=== PATIENT | female | born 2000 | race Caucasian/White ===

== ENCOUNTER 2024-11-01 10:52 | Outpatient (REF) | payer BC, SELFPAY ==
[2024-11-01 14:24] LABS: Hematocrit 41.4 % (37.0-47.0); Hemoglobin 14.1 g/dl (12.0-16.0); Mean Corpuscular HGB Conc 34.1 g/dl (31.0-35.0); Mean Corpuscular Hemoglobin 30.2 pg (27.0-33.0); Mean Corpuscular Volume 88.7 fL (80.0-98.0); NRBC Abs Auto 0.000 X10*3/uL (0.0-0.012); NRBC Pct Auto 0.0 /100WBC (0.0-0.2); Platelet Count 354 X10*3/uL (160-400); Red Blood Count 4.67 X10*6/uL (4.20-5.50); White Blood Count 9.9 X10*3/uL (4.8-10.8)
[2024-11-01 14:32] LABS: Hemoglobin A1C 121.5184 umol/L; Total Hemoglobin (HGBA1C) 3725.3980 umol/L
[2024-11-01 14:48] LABS: Alanine Aminotransferase 25 U/L (0-31); Albumin Level 4.2 g/dL (3.5-5.0); Alkaline Phosphatase 55 U/L (39-117); Anion Gap 11 (12-20); Aspartate Amino Transferase 20 U/L (5-31); Blood Urea Nitrogen 14 mg/dL (9-16); Calcium 9.1 mg/dL (8.4-10.2); Carbon Dioxide 26 mmol/L (22-29); Chloride 106 mmol/L (96-108); Cholesterol 217 mg/dL (<200); Estimated Glomerular Filt Rate > 60; HDL Cholesterol 59 mg/dL (>40); Potassium 4.2 mmol/L (3.3-5.1); Sodium 139 mmol/L (135-145); Total Protein 7.0 g/dL (6.5-8.0); Triglycerides 85 mg/dL (<150)
[2024-11-01 15:06] LABS: Folate 9.7 ng/mL (> or = 4.0); Vitamin B12 733 pg/mL (200-900)
[2024-11-03 16:39] LABS: Immunoglobulin A 167 mg/dL (47-310)
== END 2024-11-01 10:53 | disposition home or self-care (01) ==
LOC: HO.WFDLDS 10:52
PROVIDERS: PCP Nurse Practitioner Family; Visit Provider Nurse Practitioner Family
DX: J45.20 Mild intermittent asthma, uncomplicated (principal); K21.9 Gastro-esophageal reflux disease without esophagitis; F41.1 Generalized anxiety disorder; F33.1 Major depressive disorder, recurrent, moderate; G43.109 Migraine with aura, not intractable, without status migrainosus; R14.0 Abdominal distension (gaseous); R10.9 Unspecified abdominal pain; H53.8 Other visual disturbances; J30.2 Other seasonal allergic rhinitis; L74.513 Primary focal hyperhidrosis, soles; E66.01 Morbid (severe) obesity due to excess calories; Z76.89 Persons encountering health services in other specified circumstances; Z68.42 Body mass index [BMI] 45.0-49.9, adult
CPT/HCPCS: 36415; 80053; 80061; 82306; 82570; 82607; 82746; 82784; 83036; 84443; 85027; 86364; 96127; 96160

== ENCOUNTER 2024-11-01 10:52 | Outpatient (AMB) | payer BC, SELFPAY ==
--- NOTE | 2024-11-01 10:54 | MHC.PC.OV ---
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 Intake Note: New patient to establish care and cpe Bulldozer Press Operator Required: No Allergies No Known Allergies Allergy (Verified 11/01/24 11:19) Medication List - Last Reconciled 11/01/24 by Jenny Davila, MORTGAGE MANAGER- albuterol sulfate 90 mcg/actuation inhalation cetirizine 10 mg PO DAILY lorazepam 0.5 mg PO DAILY PRN pantoprazole 20 mg PO DAILY Tobacco use date assessed: 11/01/24 Dental Screening Dental Screen Date: 11/01/24 Did you have a dental visit in the last 12 months?: Yes Did you have a dental problem in the last 6 months where you did not have access to dental care?: No Was dental information given to patient?: Patient has dentist HPI HPI Comments History of Present Illness Details 24 y/o F with asthma, obesity, seasonal allergies, GERD, migraine with aura Health Maintenance Tdap 2013 [facility] Optho Counselor Med prescriber Samson History of Present Illness - The patient is a 24-year-old female presenting to [facility] care Previous PCP: kacie Kerr before ([facility]) No records available. c/o migraine w/ aura. - Migraines since age 13 with aura, previously 2-3 episodes weekly, less frequent now. - Imitrex ineffective, no ongoing migraine treatment, open to preventatives. - Chronic bloating & abd pain, generalized, no diarrhea, noted year-round for years, exacerbated during menses. - asthma has never been tested formerly; worse when sick. Using EMPERATRIZ + seaonsal allergies, uses zyrtec - GERD controlled on PPI. - Foot odor, notably after work, described as ?vinegar-like.? wonders if she has fungus; excessive sweating - Patient reports past issue with pink eye and corneal scars. Seeing Dr Sandoval, needs backdated referral. - BMI 46.5 Review of Systems - General: Denies unexpected weight changes. - Cardiovascular: Denies palpitations or chest pain. - Respiratory: Reports asthma managed with albuterol. - Gastrointestinal: Reports chronic abdominal bloating; denies diarrhea. - Genitourinary: Recent Nexplanon removal; two menstrual cycles since. - Neurological: Reports migraines with aura. - Psychiatric: Reports anxiety and depression with ongoing management. - Dermatological: Reports foot odor and potential fungal infection. Physical Exam General: Well developed, well nourished, in no acute distress. Appears stated age. Head: Normocephalic, atraumatic. Eyes: Pupils are equal, round and reactive to light and accommodation. Conjunctivae are clear. Lungs: Clear to auscultation bilaterally. No rales, rhonchi or wheeze noted. Good air flow in all kc. Heart: Regular rate and rhythm. No murmurs, click, rubs or gallops are noted. Abdomen: Bowel sounds present in all quadrants. The abdomen is soft with no masses or organomegaly noted. Tender generally speaking w/o rebound or gaurding, No hernias are noted. Musculoskeletal: Joints are nontender, without swelling, redness, or effusions. Pulses: Peripheral pulses are equal and palpable bilaterally. Extremities: No clubbing, cyanosis nor edema is noted. Mild fungal toe nails. Psych: Mood and affect appropriate. Patient is in counseling and has a medication prescriber for anxiety and depression. Results Pending Discussion Notes I discussed with the patient her concerns regarding migraines and the current lack of effective treatment. Told her about the option for preventative vitamins such as magnesium and riboflavin to reduce migraines' frequency and severity. Further, I addressed the need to consider an abortive medication alternative since Imitrex was ineffective. Discussed the benefits and potential side effects of magnesium. For chronic abdominal bloating, I recommended labs and a stool sample to rule out bacterial causes and potential celiac disease, emphasizing the importance of continuing to consume gluten for accuracy. Assured the patient that results and requirements would be sent to her through our patient portal. Suggested a pulmonary function test to evaluate her asthma control and approval for using her inhaler as necessary in the meantime. Queried about her foot odor; explained it could have a fungal cause. Proposed prescribing Qbryza wipes if covered by insurance and suggesting moisture-wicking socks if not. Finally, explained the benefit of follow-up to review lab results, migraine management evaluation, and prescription adjustments. Patient was given time to ask questions. All questions were answered to their satisfaction. Assessment and Plan 1. Migraine with Aura - Magnesium 400 mg PM, riboflavin PM; monitor response. - Excedrin migraine for abortive sparingly - consider neuro referral prn only 2. Asthma - Albuterol PRN, order PFT for further evaluation. 3. Abdominal Discomfort and Bloating - Celiac panel, stool bacteria test; follow-up with lab results. 4. Foot Odor and Possible Fungal Infection - Trial Qbryza wipes pending insurance, suggest non-cotton socks. - otc antifungals 5. Obesity - Encourage discussion of weight loss strategies in future visits. RTO in 8 week to review labs, fu on PFT, migraine mgmt. Sooner as needed. Patient Instructions - Take magnesium supplement at night, be aware of potential side effects. - Begin taking riboflavin as advised. - Complete blood and stool tests as instructed. - Use albuterol inhaler as needed until pulmonary test performed. - Wear moisture-wicking socks for foot odor and await potential pharmacy call regarding Qubrisa. - Check our patient portal for lab results and further instructions. Consent Patient was informed and verbally consented to the use of an ambient scribe for clinic note documentation during this visit. Total time spent caring for the patient today was 40 minutes. This includes time spent before the visit reviewing the chart, time spent during the visit, and time spent after the visit on documentation, reviewing laboratory results, diagnostic imaging, medications, performing a medically necessary evaluation, counseling on diagnoses, care coordination, ordering appropriate tests, ordering appropriate medications, review of tests performed by other providers, reporting test results with the patient, communication with other healthcare providers. [facility] Medical History (Updated 11/01/24 @ 11:45 by Jenny Davila, [facility]) Anxiety and depression Asthma Bipolar 1 disorder GERD (gastroesophageal reflux disease) Headache Migraines OCD (obsessive compulsive disorder) Surgical History (Updated 11/01/24 @ 11:07 by Courtney Kennedy MA) No pertinent past surgical history Family History (Updated 11/01/24 @ 11:12 by Courtney Kennedy MA) Mother Asthma HTN (hypertension) Clotting disorder Mental health disorder Substance abuse Maternal Grandmother Asthma HTN (hypertension) Colon cancer Paternal Grandmother Asthma HTN (hypertension) Diabetes Clotting disorder Breast cancer Paternal Grandfather HTN (hypertension) Father High cholesterol Social History (Updated 11/01/24 @ 11:08 by Courtney Kennedy MA) Household Members: Family Household Members Other:: father Both parents involved: No Caregiver staying overnight: No Housing: House Are you a primary career orientation teacher to a significant other at home: No Do you presently have visiting nurse or other home services: No 75 years or older and lives alone: No Alcohol intake: current Alcohol intake frequency: a few times a month Patient Tobacco Use Status: Never used Tobacco e-Cigarette/Vaping Use: Never Used Second Hand Smoke Exposure: No Substance Use Type: Marijuana service: No Current occupational status: employed Current occupation: [employer] Cognitive needs: No Hearing needs: No Vision needs: Yes (wear glasses) Questionnaire PHQ-9 Over the last 2 weeks, how often have you been bothered by any of the following problems? 1. Little interest or pleasure in doing things: more than half the days 2. Feeling down, depressed, or hopeless: more than half the days 3. Trouble falling or staying asleep, or sleeping too much: nearly every day 4. Feeling tired or having little energy: nearly every day 5. Poor appetite or overeating: nearly every day 6. Feeling bad about yourself - or that you are a failure or have let yourself or your family down: nearly every day 7. Trouble concentrating on things, such as reading the newspaper or watching television: nearly every day 8. Moving or speaking so slowly that other people could have noticed. Or the opposite - being so fidgety or restless that you have been moving around a lot more than usual: several days 9. Thoughts that you would be better off or of hurting yourself in some way: not at all Total score: 20 Depression Screening Interpretation: Positive Depression Screening Follow-up: Existing condition and Community Mental Health Worker F/U Depression Screening Done: Yes 23172 - PHQ-9 Billing: Yes Source: Developed by Drs. Destin Ambrosio, Traci Clarke, Fernando Virk and colleagues, with an educational hilda from [employer] Thrive Questionnaire Date Thrive assessed: 11/01/24 I am a: Patient What is your living situation today?: I have a steady place to live Within the past 12 months, did the food you bought not last and you didn't have the money to get more?: Never true Within the past 12 months, did you worry whether your food would run out before you got money to buy more?: Never true Do you have trouble paying for medicines?: I choose not to answer this question Do you have trouble getting transportation to medical appointments?: No Do you have trouble paying your heating and electricity bill?: I choose not to answer this question Do you have trouble taking care of your child, family member or friend?: No Do you have trouble with day-to-day activities such as bathing, preparing meals, shopping, managing finances, etc.?: I choose not to answer this question Are you currently unemployed and looking for a job?: No Are you interested in more education?: I choose not to answer this question Please select the resources that you would like help with: None Currently or been in a relationship where the following occur: No concerns reported THRIVE Score: 0 AUDIT C Alcohol Use Questionnaire (AUDIT-C) 1. How often do you have a drink containing alcohol?: Monthly or less 2. How many drinks containing alcohol do you have on a typical day when you are drinking?: 1 or 2 3. How often do you have six or more drinks on one occasion?: Never Total Score: 1 Score Reviewed/Action Taken: Yes NIURKA-7 AMB Questionnaire NIURKA-7 Date NIURKA - 7 assessed: 11/01/24 Feeling nervous, anxious, or on edge: 3 = Nearly every day Not being able to stop or control worryin = Nearly every day Worrying too much about different things: 3 = Nearly every day Trouble relaxin = Nearly every day Being so restless that it is hard to sit still: 2 = More than half the days Becoming easily annoyed or irritable: 2 = More than half the days Feeling afraid as if something awful might happen: 3 = Nearly every day Total NIURKA-7 score (0-4 normal; 5-9 mild; 10-14 moderate; 15-21 severe): 19 Source: Developed by Drs. Destin Ambrosio, Traci Clarke, Fernando Virk and colleagues, with an educational hilda from [employer] NIURKA-7 Assessment Billing NIURKA-7 Assessment Tool: NIURKA-7 Assessment 09855 ACT Questionnaire In the past 4 weeks, how much of the time did your asthma keep you from getting as much done at work, school or at home?: None of the time During the past 4 weeks, how often have you had shortness of breath?: Not at all During the past 4 weeks, how often did your asthma symptoms wake you up at night or earlier than usual in the morning?: Not at all During the past 4 weeks, how often have you had to use your rescue inhaler or nebulizer medication?: Not at all How would you rate your asthma control during the past 4 weeks?: Completely controlled ACT Interpretation: Negative Score: 25 Physical exam (Primary Care) Vital Signs: Last Vital Signs Temp 97.1 F 11/01/24 11:01 Pulse 72 11/01/24 11:01 Resp 12 11/01/24 11:01 BP 102/70 11/01/24 11:01 Pulse Ox 98 11/01/24 11:01 Oxygen Delivery Method Room Air 11/01/24 11:01 BMI result Body Mass Index 46.5 BMI Assessment/Plan discussion: High BMI High, discussed plan: lifestyle Tobacco/Smoking Status: Tobacco use Status Tobacco use date assessed 11/01/24 11/01/24 10:59 Patient Tobacco Use Status Never used Tobacco 11/01/24 11:08 e-Cigarette/Vaping Use Never Used 11/01/24 11:08 PHQ-9: PHQ-9 Score PHQ-9: Total score 20 11/01/24 11:09 Depression Screening Interpretation: Positive Depression Screening Follow-up: Existing condition and Community Mental Health Worker F/U Thrive Assessment: Date of Thrive Assessment Date Thrive assessed 11/01/24 11/01/24 10:59 Currently or been in a relationship where the following occur: No concerns reported Coding Level of Care Code New Pt Level 4 (13341) Complex EM visit Add On G2211 Diagnoses Encounter to establish care with new provider Z76.89 Obesity, morbid, BMI 40.0-49.9 E66.01 Chronic GERD K21.9 Mild intermittent asthma in adult without complication J45.20 NIURKA (generalized anxiety disorder) F41.1 Moderate episode of recurrent major depressive disorder F33.1 Major depression episode severity: moderate Migraine with aura and without status migrainosus, not intractable G43.109 Status migrainosus presence: without status migrainosus Intractability: not intractable Abdominal bloating with cramps R14.0; R10.9 Blurred vision, bilateral H53.8 Seasonal allergies J30.2 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 Additional Codes NIURKA-7 Assessment Billing - NIURKA-7 Assessment Tool: NIURKA-7 Assessment 35631 ([id number]) PHQ-9 - 54365 - PHQ-9 Billing: Yes ([id number]) Asthma Control Questionnaire - ACT Interpretation: Negative ([id number]) Assessment & Plan Assessment & Plan (1) Encounter to establish care with new provider: Code(s): Z76.89 - Persons encountering health services in other specified circumstances (2) Obesity, morbid, BMI 40.0-49.9: Code(s): E66.01 - Morbid (severe) obesity due to excess calories Category: Medical (3) Chronic GERD: Code(s): K21.9 - Gastro-esophageal reflux disease without esophagitis Category: Medical (4) Mild intermittent asthma in adult without complication: Code(s): J45.20 - Mild intermittent asthma, uncomplicated Category: Medical (5) NIURKA (generalized anxiety disorder): Code(s): F41.1 - Generalized anxiety disorder Category: Medical (6) MDD (major depressive disorder), recurrent episode: Code(s): F33.9 - Major depressive disorder, recurrent, unspecified Category: Medical Qualifiers: Major depression episode severity: moderate Qualified Code(s): F33.1 - Major depressive disorder, recurrent, moderate (7) Migraine with aura: Comment: tried and family imitrex in the past Code(s): G43.109 - Migraine with aura, not intractable, without status migrainosus Category: Medical Qualifiers: Status migrainosus presence: without status migrainosus Intractability: not intractable Qualified Code(s): G43.109 - Migraine with aura, not intractable, without status migrainosus (8) Abdominal bloating with cramps: Code(s): R14.0 - Abdominal distension (gaseous); R10.9 - Unspecified abdominal pain Category: Medical (9) Blurred vision, bilateral: Code(s): H53.8 - Other visual disturbances Category: Medical (10) Seasonal allergies: Code(s): J30.2 - Other seasonal allergic rhinitis Category: Medical (11) Hyperhidrosis of feet: Code(s): L74.513 - Primary focal hyperhidrosis, soles Category: Medical Plan . Orders: Orders H pylori Ag Stool Today R10.9 - Unspecified abdominal pain, R14.0 - Abdominal distension (gaseous) Comprehensive Met. Panel Today Z00.00 - Encounter for general adult medical examination without abnormal findings Complete Blood Count no Diff Today Z00.00 - Encounter for general adult medical examination without abnormal findings Vitamin B12 and Folate Today Z00.00 - Encounter for general adult medical examination without abnormal findings Celiac Disease Panel Today R10.9 - Unspecified abdominal pain, R14.0 - Abdominal distension (gaseous) PFT pulmonary function test Today J45.20 - Mild intermittent asthma, uncomplicated Hemoglobin A1c Today Z00.00 - Encounter for general adult medical examination without abnormal findings Lipid Panel Today Z00.00 - Encounter for general adult medical examination without abnormal findings Microalbumin, Random (w Creat) Today Z00.00 - Encounter for general adult medical examination without abnormal findings TSH reflex Free T4 Today Z00.00 - Encounter for general adult medical examination without abnormal findings Vitamin D 25-OH Total Today Z00.00 - Encounter for general adult medical examination without abnormal findings Referrals Ophthalmology Referral H53.8 - Other visual disturbances Medications: New magnesium oxide 400 mg PO BEDTIME 90 caps 2RF riboflavin (vitamin B2) 400 mg PO BEDTIME 90 tabs 2RF pantoprazole 20 mg PO DAILY 90 tabs 2RF albuterol sulfate 90 mcg/actuation 2 puffs inhalation Q6H 6.7 grams 1RF cetirizine 10 mg PO DAILY 90 tabs 2RF glycopyrronium tosylate 2.4% (Qbrexza) 1 appl topical Q24H 30 ea 12RF rnqagqg-ubirmnjgkfpgv-nlbebart 250-250-65 mg (Excedrin Migraine) 1 tab PO DAILY PRN 30 tabs 2RF MIGRAINE HEADACHE Patient Instructions: Walk-In Care (Urgent Care): We Make it Easy Walk-in for urgent medical issues such as: ? Seasonal Allergies ? Insect Bites ? Cough ? Diarrhea ? Acute Asthma Attacks ? Back, Knee or Joint Pain ? Ear Infection ? Fever without a Rash ? Headaches ? Nausea ? [place] [facility], Rash or Skin Irritation ? Sore Throat ? Sports Physicals ? Vomiting Most insurances are accepted. Patients do not need to be part of the [facility] to seek care at the walk-in clinic. Locations [address] [place] [address] ? [phone] [facility] Walk-In Care in [place] provides services to ages 18 and over. Open Friday-Friday: 7 a.m. to 5 p.m. and Friday: 9 a.m. to 3 p.m.* *Hours may vary due to staffing availability. To confirm Walk-In Care hours in [place], please call [phone]. [address] [place] [address] ? [phone] [facility] Walk-In Care in [place] provides services to ages 12 and over. Open Friday-Friday: 8 a.m. to 5 p.m. Hours may vary due to staffing availability. To confirm Walk-In Care hours in [place], please call [phone]. LABORATORY SERVICES: [facility] Lab ? Primary Location [address] [place] [address] Friday through Friday 6:00 AM ? 5:00 PM Friday 7:00 AM ? 11:00 AM* [phone] The [facility] Lab is centrally located near the front entrance of the [facility] for easy outpatient access. Convenient parking is provided for outpatients. *Hours may vary due to staffing availability. To confirm Laboratory hours for any location, please call [phone]. Offsite Location For your convenience, we offer offsite laboratory draw stations at the following locations: [address] [place] [address] ? [address], [address] Friday through Friday 7:30 AM ? 1:00 PM* [phone] *Hours may vary due to staffing availability. To confirm Laboratory hours for any location, please call [phone]. [place] ? [address] Friday through Friday 6:00 AM ? 3:30 PM* Friday 6:30 AM ? 3 PM* [phone] *Hours may vary due to staffing availability. To confirm Laboratory hours for any location, please call [phone] [place] [address] Friday through Friday 7:30 AM ? 4:00 PM* [phone] *Hours may vary due to staffing availability. To confirm Laboratory hours for any location, please call [phone] [place] [address] Friday through 9:00 AM ? 4:00 PM* *Hours may vary due to staffing availability. To confirm Laboratory hours for any location, please call [phone]. Appointments are not necessary. Walk-ins are welcome. Like all the departments throughout the [facility], our Lab undergoes frequent reviews to ensure the quality and accuracy of test results, and our staff takes special pride in its status as a nationally accredited facility. Patient Portal: [facility] ONE PATIENT. ONE RECORD. BETTER CARE. [facility] has a fully integrated, cutting-edge mobile electronic health information system that has revolutionized the way we care for our patients and manage our organization. This system improves communication and coordination enabling us to provide safe, higher-quality care, and an overall positive experience for staff and patients. Our first priority, as always, is to deliver the highest quality care possible. The system is running in the background supporting that priority. This portal is for all [facility] services and practices. If you are experiencing any technical difficulties with enrolling or logging into the Patient Portal please complete the [facility] Patient Portal Technical Support Form. [facility] now offers a new secure on-line interactive tool for patients to review their health information ? ?Patient Portal. This interactive web portal will enable patients and their families to take an active role in their care by providing easy, secure access to their health information via the internet. The Patient Portal provides patients with instant access to their health information, including laboratory results, medications, allergies, demographic information, visit history, and more. In addition to managing their own care, parents and health care proxies with authorized consent will appreciate the ability to access the records of those individuals for whom they provide care. Please note: if you wish to gain access (Proxy) to another patient?s portal, you will be required to come to the Medical Records Department in person at [facility]. Both the patient giving proxy access and the proxy will need to provide photo identification and complete the appropriate authorization. The Patient Portal also allows track their appointments online. The [facility] Patient Portal also saves patients time by allowing them to submit updates to their demographic and contact information prior to their visits. Portal email notifications will also alert patients to any new activity on their portal, such as test results and new appointments. In order to initially enroll in the [facility] Patient Portal, you will need to enter some required information including the following: your [facility] Medical Record number your personal home email address name date of Please note: In order to enroll in the [facility] Patient Portal, we need to have your email address on file in your electronic medical record. ?The email address needs to be specific for one person (yourself) in order for your Portal enrollment to be successful. ?You can update your email address in person with our Registration staff when you are registering for a hospital visit. ?Otherwise, you will need to come to the Health Information Management (Medical Records) Department at [facility]. ?We are open from Friday ? Friday from 7:30 a.m. ? 4:30 p.m. ?You will be required to present a photo id. Once you have successfully enrolled in the Patient Portal, you will receive a one-time user id and password for the Portal, sent to your email address. ?This will allow you to log into the Patient Portal within 99 hrs and reset your own logon id and password, and define personal security questions. ?Once your permanent login and password have been set, you can log into the [facility] Patient Portal at any time via the blue button above or from the Portal Logon button on any page of the [facility] website. [facility] and [facility] encourage all of our patients to enroll in Patient Portal as it presents a valuable opportunity for patients and their families to actively participate in their care and stay healthy Welcome to [facility]. ?We look forward to working with you.
[2024-11-01 11:01] VITALS: BP 102/70; PULSE 72; RESP 12; TEMP 36.2; O2SAT 98; BMI 46.5
--- OUTSIDE RECORDS SUMMARY | 2024-11-01 12:08 | XMS_ITS ---
Author Name [facility] Organization Unknown History of Medication Use Medication Directions Dispensed Refills Start Date End Date Stat us predniSONE (DELTASONE) 50 mg tablet Take 1 tablet (50 mg total) by mouth daily for 3 days. Take with food. 11/27/2023 12/01/2023 active busPIRone (BUSPAR) 7.5 mg tablet Take 1 tablet (7.5 mg total) by mouth 2 (two) times daily. 11/04/2023 active etonogestreL (NEXPLANON) 68 mg Impl 1 each (68 mg total) by Subdermal route once. active hydrOXYzine (VISTARIL) 50 mg capsule Take 1 capsule (50 mg total) by mouth 3 (three) times daily as needed for anxiety. active OXcarbazepine (TRILEPTAL) 300 mg tablet Take 1 tablet (300 mg total) by mouth 2 (two) times daily. 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 3 ProblemAct [facility] Flu-like symptoms active 2024-02-08 9 ProblemAct [facility] Family history of migraine headaches active 9 ProblemAct [facility] Suprapubic pain, acute active EncounterDiagnosi sAct CCT Flank pain active EncounterDiagnosisAct HHCCT Encounters Encounter Type Encounter Reason Primary Diagnosis Location Date Ambulatory Other general symptoms(780.99) Other general symptoms(780.99) [facility] 02/26/2024 Ambulatory Acute pharyngitis Acute pharyngitis [facility] 11/27/2023 Ambulatory Acute pharyngitis Acute pharyngitis [facility] 11/13/2023 Ambulatory Unspecified abdominal pain Unspecified abdominal pain [facility] 07/20/2023 Care Team Organization Name Specialty Phone Email Start Date End Da te [facility] 11/13/2023 [facility] NO PCP Primary Care 07/20/2023 [facility] 07/20/2023 05/26/2024 [facility] 07/20/2023
--- OUTSIDE RECORDS SUMMARY | 2024-11-01 12:08 | XMS_ITS | Clinical Summary ---
Author Organization [facility] Address [address] [place] [address] Care Team Providers Care Table Operator Name Role Phone Pcp, No Primary Care Provider Unavailabl e Allergies No known active allergies Medications OXcarbazepine (TRILEPTAL) 300 MG tablet Take 300 mg by mouth 2 (two) times a day. 4 Active hydrOXYzine pamoate (VISTARIL) 50 MG capsule TAKE ONE CAPSULE BY MOUTH TWICE A DAY NEEDED FOR ANXIETY 4 Active etonogestrel (Nexplanon) 68 MG implant 68 mg by Subdermal route once. Active Social History Tobacco Use Types Packs/Day Years Used Date Smoking Tobacco: Never Smokeless Tobacco: Never Comments Unknown Sex and Gender Information Value Date Recorded Sex Assigned at Not on file Legal Sex Female 2:13 PM EDT Gender Identity Not on file Sexual Orientation Not on file Last Filed Vital Signs Vital Sign Reading Time Taken Comments Blood Pressure 140/84 07/20/2023 4:20 PM EDT Pulse 82 07/20/2023 4:20 PM EDT Temperature 36.8 C (98.3 F) 07/20/2023 4:20 PM EDT Respiratory Rate 16 07/20/2023 4:20 PM EDT Oxygen Saturation 99% 07/20/2023 4:20 PM EDT Inhaled Oxygen Concentration - - Weight - - Height - - Body Mass Index - - Plan of Treatment Health Maintenance Due Date Last Done Comments Hepatitis C Virus Screening 2001 HIV Screening 2014 HPV Vaccines (1 - 3-dose series) 2016 DTaP/Tdap/Td Vaccines (1 - Tdap) 2020 Hepatitis B Vaccines (1 of 3 - 19+ 3-dose series) 2020 Pap Smear (Ages 21-65) 2022 COVID-19 Vaccine (3 2023-2 5 season) 2023 08/30/2020, 07/16/2020 Influenza Vaccine 10/08/2024 Pneumococcal Vaccine: Pediatric (0-5 Years) and At-Risk Patients (6 to 49 Years) Aged Out No longer eligible b ased on patient's age to complete this topic Insurance [employer] Care Teams Table Operator Relationship Specialty Start Date End Date Pcp, No PCP - General General Medicine 07/20/23
--- OUTSIDE RECORDS SUMMARY | 2024-11-01 12:08 | XMS_ITS | Clinical Summary ---
Author Organization [facility] [address] [facility] Address [address] [place] [address] Phone Care Team Providers Care Manager Practice Name Role Phone ChangJose Primary Care Provider [phone] Allergies No known active allergies Medications etonogestrel-eluti ng contraceptive device 68 mg implant subdermal implant Inject into the skin. Active QUEtiapine (SEROquel) 25 mg tablet Take 1 tablet (25 mg total) by mouth 2 (two) times a day. Active OXcarbazepine (TRILEPTAL) 300 mg tablet Take 1 tablet (300 mg total) by mouth 2 times daily. 4 Active Active Problems No known active problems Medical History Medical History Date Comments Migraines Family History Medical History Relation Name Comments Blindness Neg Hx Cataracts Neg Hx Glaucoma Neg Hx Macular degeneration Neg Hx Strabismus Neg Hx Relation Name Status Comments Father Alive Mother Alive Social History Tobacco Use Types Packs/Day Years Used Date Smoking Tobacco: Never Tobacco Cessation:Counseling Given: Not Answered Alcohol Use Standard Drinks/Week Comments Not Currently 0 (1 standard drink = 0.6 oz pur e alcohol) Comments Unknown Sex and Gender Information Value Date Recorded Sex Assigned at Not on file Legal Sex Female 3:10 AM EST Gender Identity Not on file Sexual Orientation Not on file 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 Not on file Not on file Obstetrics History Para Term AB IAB SAB Ectopic Multiple Livin g Live Births 0 0 0 0 0 0 0 0 0 0 0 Last Filed Vital Signs Vital Sign Reading Time Taken Comments Blood Pressure 129/83 02/20/2024 1:13 PM EST Pulse 87 02/20/2024 1:13 PM EST Temperature - - Respiratory Rate - - Oxygen Saturation - - Inhaled Oxygen Concentration - - Weight 101 kg (222 lb) 02/20/2024 1:13 PM EST Height 157.5 cm (5' 2 ) 02/18/2023 10:38 AM EST Body Mass Index 40.6 02/18/2023 10:38 AM EST Plan of Treatment Health Maintenance Due Date Last Done Comments HPV Vaccines (1 - 3-dose series) 2016 Meningococcal B Vaccine (1 o f 2 - Standard) 2017 DTaP,Tdap,and Td Vaccines (1 - Tdap) 2020 Hepatitis B Vaccines (1 of 3 - 19+ 3-dose series) 2020 HIV Screening 04/09/2023 Hepatitis C Screening 04/09/2023 Social Influencers of Health Screening 04/09/2023 COVID-19 Vaccine (1 - 2023-2 5 season) 2023 Depression Screening 03/10/2024 Influenza Vaccine (#1) 2024 Gonorrhea/Chlamydia Screening 02/19/2025, 02/18/2023 Cervical Cancer Screening: P ap Smear 02/18/2026 02/18/2023, 02/18/2023 HIB Vaccines Aged Out No longer eligi ble based on patient's age to complete this topic Hepatitis A Vaccines Aged Out No long er eligible based on patient's age to complete this topic IPV Vaccines Aged Out No longer eligi ble based on patient's age to complete this topic MMR Vaccines Aged Out No longer eligi ble based on patient's age to complete this topic Meningococcal ACWY Vaccine Aged Out N o longer eligible based on patient's age to complete this topic Pneumococcal Vaccine: Pediatrics (0 to 5 Years) and At-Risk Patients (6 to 49 Years) Aged Out No longer eligible b ased on patient's age to complete this topic RSV Immunization Patients Under 20 months Aged Out No longer eligible b ased on patient's age to complete this topic Varicella Vaccines Aged Out No longer eligible based on patient's age to complete this topic Procedures Procedure Name Priority Date/Time Associated Diagnosis Comments PULMONARY FUNCTION TESTING 08/17/2024 CHLAMYDIA TRACHOMATIS AND NEISSERIA GONORRHOEAE PCR Routine 02/20/2024 1:38 PM EST Screen for STD (sexually transmitted disease) HPV Routine 02/18/2023 from Last 3 Months or Most Recently Relevant to Health Maintenance Results * Pulmonary function testing: (08/17/2024) Provider Mehdi Onbase PFT ORDERABLES Final Re sult * Chlamydia trachomatis and Neisseria gonorrhoeae molecular study (02/20/2024 1:38 PM EST) Pathologist [facility] Neisseria gonorrhoeae PCR Negative Negative LAB MOLECULAR DIAGNOSTICS METHOD 02/21/2024 9:02 AM EST [facility] Chlamydia trachomatis PCR Negative Negative LAB MOLECULAR DIAGNOSTICS METHOD 02/21/2024 9:02 AM EST [facility] Swab Cervix uteri structure / Unknown Non-blood Collection / Unknown 02/20/2024 1:38 PM EST 02/20/2024 1:38 PM EST Johnson Albrecht CNM LAB MICROBIOLOGY - GENERAL ORD ERABLES Final Result [facility] [address] [place] [address], * Cervical Cancer Screening: HPV (02/18/2023) Pathologist [facility] Cervical Cancer Screening: HPV no interpretation , abstracted Historical Provider HEALTH MAINTENANCE Final Result from Last 3 Months or Most Recently Relevant to Health Maintenance Insurance MEDICAID - [place] [facility] Care Teams Manager Practice Relationship Specialty Start Date End Date Jose Downing DO [address] [place] [id number] PCP - General 03/20/23
--- OUTSIDE RECORDS SUMMARY | 2024-11-01 12:08 | XMS_ITS | Clinical Summary ---
Author Organization [address] Address [address] [place] [id number] Care Team Providers Care Form Builder Helper Name Role Phone No, Pcp (Do Not Change Name) Primary Care Provid er Unavailable Allergies No known active allergies Medications OXcarbazepine (TRILEPTAL) 300 mg tablet Take 1 tablet (300 mg total) by mouth 2 (two) times daily. Active hydrOXYzine (VISTARIL) 50 mg capsule Take 1 capsule (50 mg total) by mouth 3 (three) times daily as needed for anxiety. Active etonogestreL (NEXPLANON) 68 mg Impl 1 each (68 mg total) by Subdermal route once. Active busPIRone (BUSPAR) 7.5 mg tablet Take 1 tablet (7.5 mg total) by mouth 2 (two) times daily. 4 Active Active Problems Problem Noted Date Diagnosed Date Flu-like symptoms 02/26/2024 Nausea and vomiting, unspecified vomiting type 1 04/28/2023 Family history of migraine headaches 09/15/2018 Mixed hypercholesterolemia and hypertriglyceride alma rosa 06/15/2018 Migraine with aura 07/28/2017 Anxiety disorder of childhood or adolescence Acne vulgaris 03/15/2016 Family History Medical History Relation Name Comments Breast cancer Maternal Grandmother x's 2 Diabetes Type 2 Maternal Grandmother Relation Name Status Comments Father Alive Maternal Grandmother Alive Mother Alive Social History Tobacco Use Types Packs/Day Years Used Date Smoking Tobacco: Never Smokeless Tobacco: Never Tobacco Cessation:Counseling Given: Not Answered Alcohol Use Standard Drinks/Week Comments Not Currently 0 (1 standard drink = 0.6 oz pur e alcohol) seldom Comments No Sex and Gender Information Value Date Recorded Sex Assigned at Not on file Legal Sex Female 9:35 AM EDT Gender Identity Not on file Sexual Orientation Not on file Last Filed Vital Signs Vital Sign Reading Time Taken Comments Blood Pressure 132/83 02/26/2024 4:00 PM EST Pulse 82 02/26/2024 4:00 PM EST Temperature 36.7 C (98 F) 02/26/2024 4:00 PM EST Respiratory Rate 18 02/26/2024 4:00 PM EST Oxygen Saturation 99% 02/26/2024 4:00 PM EST Inhaled Oxygen Concentration - - Weight 99.8 kg (220 lb) 02/26/2024 4:00 PM EST Height 157.5 cm (5' 2 ) 02/26/2024 4:00 PM EST Body Mass Index 40.24 02/26/2024 4:00 PM EST Plan of Treatment Health Maintenance Due Date Last Done Comments MMR Vaccines (1 of 1 - Stand wu series) 2002 DTaP/TDaP Vaccines (1 - Tdap) 2008 HIV screening 2014 Varicella Vaccines (1 of 2 - 13+ 2-dose series) 2014 HPV vaccine series (1 - 3-do se series) 2016 Hepatitis C screening 08/08/2019 Hepatitis B vaccine series ( 1 of 3 - 19+ 3-dose series) 2020 Tetanus adult (Td q 10,TDAP once) 2021 Cervical cancer screening 2022 Covid-19 vaccine series ( season) 2023 Influenza vaccine 11/08/2024 Chlamydia screening 02/19/2025 02/20/2024 RSV Immunization (1 - 1-dose 75+ series) 2076 HIB Vaccines Aged Out No longer eligi ble based on patient's age to complete this topic Hepatitis A Vaccines Aged Out No long er eligible based on patient's age to complete this topic IPV Vaccines Aged Out No longer eligi ble based on patient's age to complete this topic Meningococcal Vaccine Aged Out No amador lynda eligible based on patient's age to complete this topic Pneumococcal Vaccine (2 - 49 years) Aged Out No longer eligible b ased on patient's age to complete this topic Rotavirus Vaccines Aged Out No longer eligible based on patient's age to complete this topic Insurance [employer] Care Teams Form Builder Helper Relationship Specialty Start Date End Date No, Pcp (Do Not Change Name) PCP - General 11/13/23
== END 2024-11-01 11:38 | disposition home or self-care (01) ==
LOC: HO.HMCFM 10:53
PROVIDERS: PCP Nurse Practitioner Family; Visit Provider Nurse Practitioner Family
DX: K21.9 Gastro-esophageal reflux disease without esophagitis (principal); E66.01 Morbid (severe) obesity due to excess calories; F33.1 Major depressive disorder, recurrent, moderate; Z68.42 Body mass index [BMI] 45.0-49.9, adult; Z76.89 Persons encountering health services in other specified circumstances; J45.20 Mild intermittent asthma, uncomplicated; F41.1 Generalized anxiety disorder; G43.109 Migraine with aura, not intractable, without status migrainosus; R14.0 Abdominal distension (gaseous); R10.9 Unspecified abdominal pain; H53.8 Other visual disturbances; J30.2 Other seasonal allergic rhinitis

== ENCOUNTER 2024-11-16 09:48 | Outpatient (AMB) | payer BC, SELFPAY ==
--- NOTE | 2024-11-16 10:02 | MHC.PC.OV ---
Vital Signs 11/16/24 10:06 Height 5 ft 2 in Weight 252 lb BMI 46.1 BP 118/72 Blood Pressure Location Lt brachial Position Sitting Respiration 12 Pulse 86 Pulse Source Pulse Oximeter Temp 97.5 F Temp Source Oral Pulse Oximetry (%) 96 Oxygen Delivery Method Room Air Intake Visit Reasons: allergies Intake Note: Patient c/o pressure on face, headaches, jaw and side of the neck px x 2 weeks. Claims Service Representative Required: No Allergies No Known Allergies Allergy (Verified 11/16/24 10:11) Medication List - Last Reconciled 11/16/24 by Jenny Davila, PARTY PLAN SALES DIRECTOR- albuterol sulfate 90 mcg/actuation 2 puffs inhalation Q6H [id number] 250-250-65 mg (Excedrin Migraine) 1 tab PO DAILY PRN cetirizine 10 mg PO DAILY lorazepam 0.5 mg PO DAILY PRN magnesium oxide 400 mg PO BEDTIME pantoprazole 20 mg PO DAILY riboflavin (vitamin B2) 400 mg PO BEDTIME Tobacco use date assessed: 11/16/24 Dental Screening Dental Screen Date: 11/16/24 Did you have a dental visit in the last 12 months?: Yes Did you have a dental problem in the last 6 months where you did not have access to dental care?: No Was dental information given to patient?: Patient has dentist HPI HPI Comments History of Present Illness Details 24 y/o F with asthma, obesity, seasonal allergies, GERD, migraine with aura History of Present Illness - The patient is a 24-year-old female presenting with allergy symptoms in the setting of asthma. - Symptoms started about 2 weeks ago, worse over the last few days - Sneezing, intermittent sore throat, and right ear ringing reported, tight congested cough w/ mucous - Uses cetirizine 10-20mg with mild relief, same w/ Albuterol. - No fever noted. - Seasonal exacerbation noted Review of Systems - Respiratory: Reports shortness of breath and coughing tightness. - ENT: Reports sneezing, sore throat, right-sided ear ringing. - General: Denies fever. - Nasal: Denies nasal running, reports congestion. Physical Exam General: Well developed, well nourished, in no acute distress. Appears stated age. Head: Normocephalic, atraumatic. Eyes: Pupils are equal, round and reactive to light and accommodation. Conjunctivae are clear Ears: TM intact bilat; clear on the L, trace fluid on the R Nares: yellow drainage scant bilat , turbinates pale and edematous, mild frontal and maxillary sinus tenderness w palp Pharynx: clear Lungs: Mild cough, no distress, slightly dim airflow throughout Heart: Regular rate and rhythm. No murmurs, click, rubs or gallops are noted. Pulses: Peripheral pulses are equal and palpable bilaterally. Extremities: No clubbing, cyanosis nor edema is noted. Psych: Mood and affect appropriate Discussion Notes I discussed with the patient that her symptoms suggest an exacerbation of allergic rhinitis and asthma. We reviewed the use of a new combination inhaler, CombiVent, for maintenance and as-needed relief, providing multifaceted control. She agreed to trying Montelukast at bedtime, beneficial for continued airway relief. I provided guidance on the frequency of CombiVent use?up to four times daily during symptomatic periods, then as required. I explained potential side effects, ongoing management, and emphasized contacting me if symptoms worsen. Refill processes were discussed, focusing on ensuring accessibility to treatment year-long. Patient was given time to ask questions. All questions were answered to their satisfaction. Assessment and Plan 1. Allergic Rhinitis - Continue cetirizine 10-20mg QD, - Add Montelukast at bedtime. 2. Asthma - Start CombiVent inhaler, up to four times daily. Cont albuterol - Monitor symptom improvement. 3. Fluid in the Ear, R - Expect improvement with Montelukast. Patient Instructions - Use the CombiVent inhaler up to four times a day when symptoms are bad. - Continue cetirizine for allergy symptoms; - Take Montelukast every night at bedtime. - Contact if symptoms do not improve or worsen. - RTO as scheduled or sooner as needed. Consent Patient was informed and verbally consented to the use of an ambient scribe for clinic note documentation during this visit. [facility] Medical History (Updated 11/01/24 @ 11:45 by GERMANIA Ceballos) Anxiety and depression Asthma Bipolar 1 disorder GERD (gastroesophageal reflux disease) Headache Migraines OCD (obsessive compulsive disorder) Surgical History (Updated 11/01/24 @ 11:07 by Courtney Kennedy MA) No pertinent past surgical history Family History (Updated 11/01/24 @ 11:12 by Courtney Kennedy MA) Mother Asthma HTN (hypertension) Clotting disorder Mental health disorder Substance abuse Maternal Grandmother Asthma HTN (hypertension) Colon cancer Paternal Grandmother Asthma HTN (hypertension) Diabetes Clotting disorder Breast cancer Paternal Grandfather HTN (hypertension) Father High cholesterol Social History (Updated 11/01/24 @ 11:08 by Courtney Kennedy MA) Household Members: Family Household Members Other:: father Both parents involved: No Caregiver staying overnight: No Housing: House Are you a primary cardiac care unit nurse to a significant other at home: No Do you presently have visiting nurse or other home services: No 75 years or older and lives alone: No Alcohol intake: current Alcohol intake frequency: a few times a month Patient Tobacco Use Status: Never used Tobacco e-Cigarette/Vaping Use: Never Used Second Hand Smoke Exposure: No Substance Use Type: Marijuana service: No Current occupational status: employed Current occupation: wildlife technician Cognitive needs: No Hearing needs: No Vision needs: Yes (wear glasses) Questionnaire PHQ-9 Over the last 2 weeks, how often have you been bothered by any of the following problems? 1. Little interest or pleasure in doing things: not at all 2. Feeling down, depressed, or hopeless: not at all 3. Trouble falling or staying asleep, or sleeping too much: not at all 4. Feeling tired or having little energy: not at all 5. Poor appetite or overeating: not at all 6. Feeling bad about yourself - or that you are a failure or have let yourself or your family down: not at all 7. Trouble concentrating on things, such as reading the newspaper or watching television: not at all 8. Moving or speaking so slowly that other people could have noticed. Or the opposite - being so fidgety or restless that you have been moving around a lot more than usual: not at all 9. Thoughts that you would be better off or of hurting yourself in some way: not at all Total score: 0 Depression Screening Interpretation: Negative Depression Screening Done: Yes 27032 - PHQ-9 Billing: Yes Source: Developed by Drs. Destin Ambrosio, Traci Clarke, Fernando Virk and colleagues, with an educational hilda from [employer] Thrive Questionnaire Date Thrive assessed: 11/16/24 I am a: Patient What is your living situation today?: I have a steady place to live Within the past 12 months, did the food you bought not last and you didn't have the money to get more?: Never true Within the past 12 months, did you worry whether your food would run out before you got money to buy more?: Never true Do you have trouble paying for medicines?: I choose not to answer this question Do you have trouble getting transportation to medical appointments?: No Do you have trouble paying your heating and electricity bill?: I choose not to answer this question Do you have trouble taking care of your child, family member or friend?: No Do you have trouble with day-to-day activities such as bathing, preparing meals, shopping, managing finances, etc.?: I choose not to answer this question Are you currently unemployed and looking for a job?: No Are you interested in more education?: I choose not to answer this question Please select the resources that you would like help with: None Currently or been in a relationship where the following occur: No concerns reported THRIVE Score: 0 NIURKA-7 AMB Questionnaire NIURKA-7 Date NIURKA - 7 assessed: 11/16/24 Feeling nervous, anxious, or on edge: 0 = Not at all Not being able to stop or control worryin = Not at all Worrying too much about different things: 0 = Not at all Trouble relaxin = Not at all Being so restless that it is hard to sit still: 0 = Not at all Becoming easily annoyed or irritable: 0 = Not at all Feeling afraid as if something awful might happen: 0 = Not at all Total NIURKA-7 score (0-4 normal; 5-9 mild; 10-14 moderate; 15-21 severe): 0 Source: Developed by Drs. Destin Ambrosio, Traci Clarke, Fernando Virk and colleagues, with an educational hilda from [employer]. NIURKA-7 Assessment Billing NIURKA-7 Assessment Tool: NIURKA-7 Assessment 03542 Physical exam (Primary Care) Vital Signs: Last Vital Signs Temp 97.5 F 11/16/24 10:06 Pulse 86 11/16/24 10:06 Resp 12 11/16/24 10:06 BP 118/72 11/16/24 10:06 Pulse Ox 96 11/16/24 10:06 Oxygen Delivery Method Room Air 11/16/24 10:06 BMI result Body Mass Index 46.1 Tobacco/Smoking Status: Tobacco use Status Tobacco use date assessed 11/16/24 11/16/24 10:08 Patient Tobacco Use Status Never used Tobacco 11/16/24 10:08 e-Cigarette/Vaping Use Never Used 11/16/24 10:08 PHQ-9: PHQ-9 Score PHQ-9: Total score 0 11/16/24 10:08 Depression Screening Interpretation: Negative Thrive Assessment: Date of Thrive Assessment Date Thrive assessed 11/16/24 11/16/24 10:08 Currently or been in a relationship where the following occur: No concerns reported Coding Level of Care Code Est Pt Level 3 (64611) Complex EM visit Add On G2211 Diagnoses Seasonal allergies J30.2 Mild intermittent asthma in adult without complication J45.20 Additional Codes NIURKA-7 Assessment Billing - NIURKA-7 Assessment Tool: NIURKA-7 Assessment 93056 ([id number]) PHQ-9 - 59599 - PHQ-9 Billing: Yes ([id number]) Assessment & Plan Assessment & Plan (1) Seasonal allergies: Code(s): J30.2 - Other seasonal allergic rhinitis Category: Medical (2) Mild intermittent asthma in adult without complication: Code(s): J45.20 - Mild intermittent asthma, uncomplicated Category: Medical Plan . Medications: New montelukast 10 mg PO BEDTIME 90 tabs 2RF ipratropium-albuterol 20-100 mcg/actuation (Combivent Respimat) space evenly during waking hours 1 puff inhalation QID 4 grams 3RF
[2024-11-16 10:06] VITALS: BP 118/72; PULSE 86; RESP 12; TEMP 36.4; O2SAT 96; BMI 46.1
--- OUTSIDE RECORDS SUMMARY | 2024-11-16 11:32 | XMS_ITS | Clinical Summary ---
Author Organization [facility] Address [address] [place] [address] Care Team Providers Care Net Developer Consultant Name Role Phone Pcp, No Primary Care [...] topic Insurance [employer] Care Teams Net Developer Consultant Relationship Specialty Start Date End Date Pcp, No PCP - General General Medicine 07/20/23
--- OUTSIDE RECORDS SUMMARY | 2024-11-16 11:32 | XMS_ITS | Clinical Summary ---
Author Organization [address] Address [address] [place] [phone] Care Team Providers Care Info Print Press Operator Name Role Phone No, Pcp (Do Not [...] series (1 - 3-do se series) 2016 Meningococcal B Vaccine (1 o f 2 - Standard) 2017 Hepatitis C screening 08/08/2019 Hepatitis B vaccine series ( 1 of 3 - 19+ 3-dose series) 2020 Tetanus adult (Td q 10,TDAP once) 2021 Cervical cancer screening 2022 Covid-19 vaccine series ( season) 2024 Influenza vaccine 11/08/2024 Chlamydia screening 02/19/2025 02/20/2024 [...] age to complete this topic Insurance [employer] Care Teams Info Print Press Operator Relationship Specialty Start Date End Date No, Pcp (Do Not Change Name) PCP - General 11/13/23
== END 2024-11-16 10:20 | disposition home or self-care (01) ==
LOC: HO.HMCFM 09:49
PROVIDERS: PCP Nurse Practitioner Family; Visit Provider Nurse Practitioner Family
DX: J30.2 Other seasonal allergic rhinitis (principal); J45.20 Mild intermittent asthma, uncomplicated

== ENCOUNTER → 2024-11-16 09:48 | Outpatient (BNVA) | payer BC, SELFPAY | PROVIDERS: PCP Nurse Practitioner Family; Visit Provider Nurse Practitioner Family | DX: J45.20 Mild intermittent asthma, uncomplicated (principal); J30.2 Other seasonal allergic rhinitis | CPT/HCPCS: 96127 ==

== ENCOUNTER 2024-12-27 12:59 | Outpatient (AMB) | payer BC, SELFPAY ==
--- NOTE | 2024-12-27 13:02 | A.OFFPC_ITS ---
Vital Signs 12/27/24 13:07 Height 5 ft 2 in Weight 256 lb 4 oz BMI 46.9 BP 124/72 Blood Pressure Location Lt brachial Position Sitting Respiration 12 Pulse 75 Pulse Source Pulse Oximeter Temp 97.6 F Temp Source Oral Pulse Oximetry (%) 99 Oxygen Delivery Method Room Air Intake Visit Reasons: 8 WEEKS FU ON LABS/PFT/MIGRAINES Intake Note: Follow up on migraines. Patient pft was schedule for February. Pumper Helper Required: No Allergies No Known Allergies Allergy (Verified 12/27/24 13:23) Medication List - Last Reconciled 12/27/24 by Jenny Davila, CERTIFICATION ENGINEER- albuterol sulfate 90 mcg/actuation 2 puffs inhalation Q6H kcgvgam-wsdybbpcuqjdh-rwodimmy 250-250-65 mg (Excedrin Migraine) 1 tab PO DAILY PRN cetirizine 10 mg PO DAILY ipratropium-albuterol 20-100 mcg/actuation (Combivent Respimat) 1 puff inhalation QID lithium carbonate ER mg PO lorazepam 0.5 mg PO DAILY PRN magnesium oxide 400 mg PO BEDTIME magnesium oxide 400 mg PO BEDTIME montelukast 10 mg PO BEDTIME pantoprazole 20 mg PO DAILY riboflavin (vitamin B2) 400 mg PO BEDTIME Tobacco use date assessed: 12/27/24 Dental Screening Dental Screen Date: 12/27/24 Did you have a dental visit in the last 12 months?: Yes Did you have a dental problem in the last 6 months where you did not have access to dental care?: No Was dental information given to patient?: Patient has dentist HPI HPI Comments History of Present Illness Details 24 y/o F with asthma, obesity, seasonal allergies, GERD, migraine with aura, HLD, hx of Vit D def, Fhx breast ca (MGM), hx of NIURKA Fhx; Breat CA in PGM, HTN in MGM, MGF, Mom, PGF Health Maintenance Tdap 12/27/24 Pap Flu 12/27/24 Specialists Optho Counselor Med prescriber Andrei Garza History of Present Illness The patient is a 24-year-old female presenting with follow-up for migraine headaches and asthma. Chronic Migraine: - Chronic migraines; riboflavin, magnesi um started. - Excedrin used as needed; concern with lithium co-use. - Daily general headaches; no major migr aines since starting preventatives Asthma/PND/Rhinitis - Persistent wheezing; inhalers not full y effective. - Phlegm, despite CombiVent. - Upcoming pulmonary function test 02/26 25 - Recent use of Montelukast and Zyrtec. Singulair has helped. Also using flonase. Feels a lot of PND. Sometimes combivent makes her cough more Hypercholesterolemia: - Consistent high cholesterol; matching past records. - Discussed at a recent lab review. 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 - Interest in genetic testing. - She thinks she may have this given chr onic GI complaints, joint complaints and also wonders about Mast Cell Disorder. Has pelvic pain, urine incont. Bipolar: - Managed with lithium; psychotherapy in volved. - Due for labs. Review of Systems - Respiratory: Reports wheezing, phlegm. - Neurological: Reports headaches. - Musculoskeletal: Reports tendinitis. - Psychiatric: Reports anxiety, medicati on concerns. Physical Exam Physical Exam General: Well developed, well nourished, in no acute distress. Appears stated age. Head: Normocephalic, atraumatic. Eyes: Pupils are equal, round and reactive to light and accommodation. Conjunctivae are clear Ears: TM intact bilat; Nares: clear , turbinates pale Pharynx: + PND Lungs: CTAB Heart: Regular rate and rhythm. No murmurs, click, rubs or gallops are noted. Pulses: Peripheral pulses are equal and palpable bilaterally. Extremities: No clubbing, cyanosis nor edema is noted. Psych: Mood and affect appropriate Results - Lab results from 11/01/24: Normal CBC, electrolytes, liver function; elevated cholesterol. - Stool sample: Outstanding for GI evalu ation. Advised to get done SATURNINO (H pylori) - Genetic testing and ultrasound: Butch schwab for evaluation of potential Billy-Roshan los Syndrome and pelvic issues Discussion Notes I discussed with the patient the management of her chronic migraine headaches, emphasizing the current effectiveness of riboflavin and magnesium, and addressed her concern regarding Excedrin and lithium interactions. We reviewed her asthma medications, noting persistent symptoms and planning for a new inhaler prescription for improved control. There was a detailed discussion about potential genetic testing for Billy-Danlos Syndrome and mast cell disorder, planning for appropriate diagnostics. I explained the benefits and limitations of such testing and acknowledged insurance-related uncertainties regarding coverage. The patient was advised to continue with scheduled tests and follow-up plans, including the pulmonary function test, ultrasound, and blood work requested by her psychiatrist. Patient was given time to ask questions. All questions were answered to their satisfaction. Assessment and Plan 1. Chronic Migraine - Riboflavin and magnesium continued. - Careful Excedrin use with lithium. 2. Asthma/PND/Rhinitis - Prescribe Arnuity; continue Montelukas t, Zyrtec & flonase ; can use Combivent PRN - Pulmonary function test February. - Check labs for Mast cell - Tdap and Flu admin today 3. Hypercholesterolemia - Monitor levels; maintain current measu res. 4. Billy-Danlos Syndrome - pt wonders a bout this and wants genetic testing (eVendor Check) - Genetic testing ordered Order confirmed Your order ID?[id number] [email or web address] . 5. bipolar - Ongoing lithium; follow psychiatrist. 6. Abd bloating/Urine Incont: Check Pelv ic/TV US Patient Instructions - Take your new inhaler Arnuity once faby ly. - Continue taking Montelukast and Zyrtec as directed. - Use Excedrin only when headaches are s evere, not daily. - Contact us for any cost concerns with your medications. - Expect a call to schedule your pulmona ry function test in February and your ultrasound. - Submit stool sample when ready. - Return for blood tests required by you r psychiatrist. - Call us for any unusual symptoms or co ncerns. - RTO Mar to on PFT and lab testing, sooner PRN Consent The patient consented to genetic testing for potential Billy-Danlos syndrome and related mast cell inquiry after I explained the testing process. The test involves a cheek swab sent to a lab for evaluation, and it may not be fully covered by insurance. I informed her of the estimated costs and steps should the palmer be prohibitive. We discussed the necessity of multiple diagnostics, including ultrasound for pelvic concerns. The patient agreed to the proposed plans and understood the risks, benefits, and alternatives. Consent was obtained in-office with the patient acknowledging the plan and process. Patient was informed and verbally consented to the use of an ambient scribe for clinic note documentation during this visit. Total time spent caring for the patient today was 40 minutes. This includes time spent before the visit reviewing the chart, time spent during the visit, and time spent after the visit on documentation, reviewing laboratory results, diagnostic imaging, medications, performing a medically necessary evaluation, counseling on diagnoses, care coordination, ordering appropriate tests, ordering appropriate medications, review of tests performed by other providers, reporting test results with the patient, communication with other healthcare providers. [facility] Medical History (Updated 12/27/24 @ 16:10 by Jenny Davila [facility]) Anxiety and depression Asthma Bipolar 1 disorder GERD (gastroesophageal reflux disease) Headache Migraines OCD (obsessive compulsive disorder) Surgical History (Updated 11/01/24 @ 11:07 by Courtney Kennedy MA) No pertinent past surgical history Family History (Updated 11/01/24 @ 11:12 by Courtney Kennedy MA) Mother Asthma HTN (hypertension) Clotting disorder Mental health disorder Substance abuse Maternal Grandmother Asthma HTN (hypertension) Colon cancer Paternal Grandmother Asthma HTN (hypertension) Diabetes Clotting disorder Breast cancer Paternal Grandfather HTN (hypertension) Father High cholesterol Social History (Updated 11/01/24 @ 11:08 by Courtney Kennedy MA) Household Members: Family Household Members Other:: father Both parents involved: No Caregiver staying overnight: No Housing: House Are you a primary wound care specialist to a significant other at home: No Do you presently have visiting nurse or other home services: No 75 years or older and lives alone: No Alcohol intake: current Alcohol intake frequency: a few times a month Patient Tobacco Use Status: Never used Tobacco e-Cigarette/Vaping Use: Never Used Second Hand Smoke Exposure: No Substance Use Type: Marijuana service: No Current occupational status: employed Current occupation: chief accountant Cognitive needs: No Hearing needs: No Vision needs: Yes (wear glasses) Questionnaire Thrive Questionnaire Date Thrive assessed: 11/16/24 I am a: Patient What is your living situation today?: I have a steady place to live Within the past 12 months, did the food you bought not last and you didn't have the money to get more?: Never true Within the past 12 months, did you worry whether your food would run out before you got money to buy more?: Never true Do you have trouble paying for medicines?: I choose not to answer this question Do you have trouble getting transportation to medical appointments?: No Do you have trouble paying your heating and electricity bill?: I choose not to answer this question Do you have trouble taking care of your child, family member or friend?: No Do you have trouble with day-to-day activities such as bathing, preparing meals, shopping, managing finances, etc.?: I choose not to answer this question Are you currently unemployed and looking for a job?: No Are you interested in more education?: I choose not to answer this question Please select the resources that you would like help with: None Currently or been in a relationship where the following occur: No concerns reported THRIVE Score: 0 NIURKA-7 AMB Questionnaire NIURKA-7 Date NIURKA - 7 assessed: 11/16/24 Source: Developed by Drs. Destin Ambrosio, Traci Clarke, Fernando Virk and colleagues, with an educational hilda from [employer]. ACT Questionnaire In the past 4 weeks, how much of the time did your asthma keep you from getting as much done at work, school or at home?: A little of the time During the past 4 weeks, how often have you had shortness of breath?: 1-2 times a week During the past 4 weeks, how often did your asthma symptoms wake you up at night or earlier than usual in the morning?: Once a week During the past 4 weeks, how often have you had to use your rescue inhaler or nebulizer medication?: 2-3 times a week How would you rate your asthma control during the past 4 weeks?: Somewhat controlled ACT Interpretation: Positive ACT Branch: Change in medication Score: 17 Physical exam (Primary Care) Vital Signs: Last Vital Signs Temp 97.6 F 12/27/24 13:07 Pulse 75 12/27/24 13:07 Resp 12 12/27/24 13:07 BP 124/72 12/27/24 13:07 Pulse Ox 99 12/27/24 13:07 Oxygen Delivery Method Room Air 12/27/24 13:07 BMI result Body Mass Index 46.9 Tobacco/Smoking Status: Tobacco use Status Tobacco use date assessed 12/27/24 12/27/24 13:05 Patient Tobacco Use Status Never used Tobacco 12/27/24 13:03 e-Cigarette/Vaping Use Never Used 12/27/24 13:03 Thrive Assessment: Date of Thrive Assessment Date Thrive assessed 11/16/24 12/27/24 13:03 Currently or been in a relationship where the following occur: No concerns reported Office Procedures Flu Questionnaire Does the patient have a severe egg allergy?: No Does the patient have severe life threatening allergies?: No Does the patient have a fever or illness today?: No Has the patient ever had Guillain-[place] Syndrome?: No Has the patient ever had any past reaction to a flu shot?: No Immunizations Fluarix [id number] (PF) 45 mcg (15 mcg x 3)/0.5 mL IM syringe Performing Provider: WILL Ceballos Performing Location: [facility] Administered by: Courtney Kennedy MA on 12/27/24 13:52 Dose Route Admin Location Dispensed Lot Number Expiration Date [facility] Embedded Engineer 0.5 mL IM Right Deltoid 0.5 mL [id number] 09/06/25 10915-335-40 [employer] VIS Given Date VIS Provided VIS Publication Date 12/27/24 Single Vaccine 24 Eligibility Eligibility Date Funding Source Not VFC Eligible 12/27/24 Private Boostrix Tdap 2.5 Lf unit-8 mcg-5 Lf/0.5 mL intramuscular syringe Performing Provider: WILL Ceballos Performing Location: [facility] Administered by: Courtney Kennedy MA on 12/27/24 13:52 Dose Route Admin Location Dispensed Lot Number Expiration Date [facility] Embedded Engineer 0.5 mL IM Left Deltoid 0.5 mL [id number] 02/04/27 67837-999-98 [employer] Total Dispensed Waste 0.5 mL 0 % VIS Given Date VIS Provided VIS Publication Date 12/27/24 Single Vaccine 20 Eligibility Eligibility Date Funding Source Not VFC Eligible 12/27/24 Private Results Reviewed Results Reviewed: 11/01/24 Laboratory Result Units Range Interpretation Provider Comments White Blood Count 9.9 X10*3/uL (4.8-10.8) Red Blood Count 4.67 X10*6/uL (4.20-5.50) Hemoglobin 14.1 g/dl (12.0-16.0) Hematocrit 41.4 % (37.0-47.0) Mean Corpuscular Volume 88.7 fL (80.0-98.0) Mean Corpuscular Hemoglobin 30.2 pg (27.0-33.0) Mean Corpuscular Hemoglobin Concent 34.1 g/dl (31.0-35.0) Red Cell Distribution Width 12.2 % (11.0-16.0) Platelet Count 354 X10*3/uL (160-400) Mean Platelet Volume 9.7 fL (9.4-12.3) Nucleated RBC Absolute Count (auto) 0.000 X10*3/uL (0.0-0.012) Nucleated Red Blood Cells % (auto) 0.0 /100WBC (0.0-0.2) Sodium Level 139 mmol/L (135-145) Potassium Level 4.2 mmol/L (3.3-5.1) Chloride Level 106 mmol/L (96-108) Carbon Dioxide Level 26 mmol/L (22-29) Anion Gap 11 (12-20) Low Blood Urea Nitrogen 14 mg/dL (9-16) Creatinine 0.66 mg/dL (0.5-1.4) Estimated Creatinine Clearance Calc Not Reportable Estimat Glomerular Filtration Rate > 60 Random Glucose 98 mg/dL (60-115) Estimated Average Glucose 100 mg/dL Hemoglobin A1c Percent 5.1 % (<6.0) Calcium Level 9.1 mg/dL (8.4-10.2) Total Bilirubin 0.2 mg/dL (0.0-1.0) Aspartate Amino Transf (AST/SGOT) 20 U/L (5-31) Alanine Aminotransferase (ALT/SGPT) 25 U/L (0-31) Alkaline Phosphatase 55 U/L (39-117) Total Protein 7.0 g/dL (6.5-8.0) Albumin 4.2 g/dL (3.5-5.0) Triglycerides Level 85 mg/dL (<150) Cholesterol Level 217 mg/dL (<200) High LDL Cholesterol, Calculated 141 mg/dL (<100) High HDL Cholesterol 59 mg/dL (>40) Vitamin B12 Level 733 pg/mL (200-900) 25-Hydroxy Vitamin D Total 31.0 ng/mL (>30) Folate 9.7 ng/mL (> or = 4.0) Thyroid Stimulating Hormone (TSH) 1.47 uIU/mL (0.32-4.0) Urine Creatinine 96.57 mg/dL Urine Microalbumin < 5.0 mg/L Urine Microalbumin/Creatinine Ratio TNP Laboratory Result Units Range Interpretation Provider Comments Immunoglobulin A 167 mg/dL (47-310) Tissue Transglutaminase IgA Ab <1.0 U/mL Celiac Disease Interpretation SEE NOTE Coding Level of Care Code Est Pt Level 5 (95349) Complex EM visit Add On G2211 Diagnoses Influenza vaccination administered at current visit Z23 Need for Tdap vaccination Z23 Obesity, morbid, BMI 40.0-49.9 E66.01 Migraine with aura and without status migrainosus, not intractable G43.109 Intractability: not intractable Status migrainosus presence: without status migrainosus Abdominal bloating with cramps R14.0; R10.9 Chronic GERD K21.9 Continuous leakage of urine N39.45 Urinary Incontinence type: continuous leakage Pelvic pain R10.20 Seasonal allergies J30.2 Mild intermittent asthma in adult without complication J45.20 Bipolar disorder F31.9 Aguanga use Z79.899 Additional Codes Asthma Control Questionnaire - ACT Interpretation: Positive ([id number]) Assessment & Plan Assessment & Plan (1) Influenza vaccination administered at current visit: Onset Date: ~12/27/24 Code(s): Z23 - Encounter for immunization Category: Medical (2) Need for Tdap vaccination: Onset Date: ~12/27/24 Code(s): Z23 - Encounter for immunization Category: Medical (3) Obesity, morbid, BMI 40.0-49.9: Code(s): E66.01 - Morbid (severe) obesity due to excess calories Category: Medical (4) Migraine with aura: Comment: tried and family imitrex in the past Code(s): G43.109 - Migraine with aura, not intractable, without status migrainosus Category: Medical Qualifiers: Intractability: not intractable Status migrainosus presence: without status migrainosus Qualified Code(s): G43.109 - Migraine with aura, not intractable, without status migrainosus (5) Abdominal bloating with cramps: Code(s): R14.0 - Abdominal distension (gaseous); R10.9 - Unspecified abdominal pain Category: Medical (6) Chronic GERD: Code(s): K21.9 - Gastro-esophageal reflux disease without esophagitis Category: Medical (7) Urinary incontinence: Code(s): R32 - Unspecified urinary incontinence Category: Medical Qualifiers: Urinary Incontinence type: continuous leakage Qualified Code(s): N39.45 - Continuous leakage (8) Pelvic pain: Code(s): R10.20 - Pelvic and perineal pain unspecified side Category: Medical (9) Seasonal allergies: Code(s): J30.2 - Other seasonal allergic rhinitis Category: Medical (10) Mild intermittent asthma in adult without complication: Code(s): J45.20 - Mild intermittent asthma, uncomplicated Category: Medical (11) Bipolar disorder: Code(s): F31.9 - Bipolar disorder, unspecified Category: Medical (12) Aguanga use: Code(s): Z79.899 - Other adjunct faculty for medical terminology (current) drug therapy Category: Medical Plan . Orders: Orders US pelvic and transvaginal Today R10.20 - Pelvic and perineal pain unspecified side, R10.9 - Unspecified abdominal pain, R14.0 - Abdominal distension (gaseous), R32 - Unspecified urinary incontinence Tryptase Today J30.2 - Other seasonal allergic rhinitis Histamine Plasma Today J30.2 - Other seasonal allergic rhinitis Influenza [id number] Immunization Today Z23 - Encounter for immunization TDaP Immunization Today Z23 - Encounter for immunization Medications: New fluticasone furoate 50 mcg/actuation (Arnuity Ellipta) 1 inh inhalation Q24H 30 ea 2RF Discontinued magnesium oxide Discontinued Reason: Patient Completed Course 400 mg PO BEDTIME 90 caps 2RF
[2024-12-27 13:07] VITALS: BP 124/72; PULSE 75; RESP 12; TEMP 36.4; O2SAT 99; BMI 46.9
== END 2024-12-27 13:54 | disposition home or self-care (01) ==
LOC: HO.HMCFM 13:00
PROVIDERS: PCP Nurse Practitioner Family; Visit Provider Nurse Practitioner Family
DX: G43.109 Migraine with aura, not intractable, without status migrainosus (principal); F31.9 Bipolar disorder, unspecified; E66.01 Morbid (severe) obesity due to excess calories; Z68.42 Body mass index [BMI] 45.0-49.9, adult; R14.0 Abdominal distension (gaseous); R10.9 Unspecified abdominal pain; K21.9 Gastro-esophageal reflux disease without esophagitis; N39.45 Continuous leakage; R10.20 Pelvic and perineal pain unspecified side; J30.2 Other seasonal allergic rhinitis; J45.20 Mild intermittent asthma, uncomplicated; Z23 Encounter for immunization

== ENCOUNTER → 2024-12-27 12:59 | Outpatient (BNVA) | payer BC, SELFPAY | PROVIDERS: PCP Nurse Practitioner Family; Visit Provider Nurse Practitioner Family | DX: G43.E09 Chronic migraine with aura, not intractable, without status migrainosus (principal); Z23 Encounter for immunization; E78.00 Pure hypercholesterolemia, unspecified; Q79.60 Ehlers-Danlos syndrome, unspecified; F31.9 Bipolar disorder, unspecified; E66.01 Morbid (severe) obesity due to excess calories; R14.0 Abdominal distension (gaseous); R10.9 Unspecified abdominal pain; K21.9 Gastro-esophageal reflux disease without esophagitis; N39.45 Continuous leakage; R10.20 Pelvic and perineal pain unspecified side; J30.2 Other seasonal allergic rhinitis; J45.20 Mild intermittent asthma, uncomplicated; Z79.899 Other long term (current) drug therapy | CPT/HCPCS: 90471; 90472; 90656; 90715; 96160 ==

== ENCOUNTER 2025-01-27 17:35 | Outpatient (REF) | payer BC, SELFPAY ==
--- OUTSIDE RECORDS SUMMARY | 2025-01-27 21:01 | XMS_ITS | Clinical Summary ---
Author Organization [address] Address [address] [place] [phone] Care Team Providers Care International Logistics Coordinator Name Role Phone No, Pcp (Do Not [...] 10,TDAP once) 2021 Cervical cancer screening 2022 Influenza vaccine 10/08/2024 Covid-19 vaccine series ( - season) 2024 Chlamydia screening 02/19/2025 02/20/2024 RSV Immunization (1 [...] topic Insurance [employer] Care Teams International Logistics Coordinator Relationship Specialty Start Date End Date No, Pcp (Do Not Change Name) PCP - General 11/13/23
--- OUTSIDE RECORDS SUMMARY | 2025-01-27 21:01 | XMS_ITS | Clinical Summary ---
Author Organization [facility] Address [address] [place] [address] Care Team Providers Care Powder Shoveler Name Role Phone Pcp, No Primary Care [...] series) 2020 Pap Smear (Ages 21-65) 2022 Influenza Vaccine 10/08/2024 COVID-19 Vaccine (3 - 2024-2 6 season) 2024 08/30/2020, 07/16/2020 Pneumococcal Vaccine: Pediatric (0-5 Years) and At-Risk Patients (6 to 49 Years) Aged Out No longer eligible b ased on patient's age to complete this topic Insurance [employer] Care Teams Powder Shoveler Relationship Specialty Start Date End Date Pcp, No PCP - General General Medicine 07/20/23
--- OUTSIDE RECORDS SUMMARY | 2025-01-27 21:01 | XMS_ITS | Clinical Summary ---
Author Organization [facility] [address] [facility] [address] Address [address] [place] [address] Phone Care Team Providers Care Plane Captain Name Role Phone ChangJose Primary Care Provider [phone] Allergies No known active allergies Medications etonogestrel-eluti [...] 04/09/2023 Social Influencers of Health Screening 04/09/2023 Depression Screening 03/10/2024 COVID-19 Vaccine (1 - 2024-2 6 season) 2024 Influenza Vaccine (#1) 2024 Gonorrhea/Chlamydia Screening 02/19/2025, 02/18/2023 Cervical Cancer Screening: P ap Smear 02/18/2026 02/18/2023, 02/18/2023 RSV Immunization Adult Patients (1 - 1-dose 75+ series) 2076 HIB [...] Procedure Name Priority Date/Time Associated Diagnosis Comments CHLAMYDIA TRACHOMATIS AND NEISSERIA GONORRHOEAE PCR Routine 02/20/2024 1:38 PM EST Screen for STD (sexually transmitted disease) HPV Routine 02/18/2023 from Last 3 Months or Most Recently Relevant to Health Maintenance Results * Chlamydia trachomatis and Neisseria gonorrhoeae molecular study (02/20/2024 1:38 PM EST) Pathologist [facility] Neisseria gonorrhoeae PCR Negative Negative LAB MOLECULAR DIAGNOSTICS METHOD 02/21/2024 9:[address] [facility] Chlamydia trachomatis PCR Negative Negative LAB MOLECULAR DIAGNOSTICS METHOD 02/21/2024 9:[address] [facility] Swab Cervix uteri structure / Unknown Non-blood Collection / Unknown 02/20/2024 1:38 PM EST 02/20/2024 1:38 PM EST [facility] MICROBIOLOGY - GENERAL ORD ERABLES Final Result [facility] [address] [place] [address], * Cervical Cancer Screening: HPV (02/18/2023) [facility] Cervical Cancer Screening: HPV no interpretation , abstracted Historical Provider MD HEALTH MAINTENANCE Final Result from Last 3 Months or Most Recently Relevant to Health Maintenance Insurance MEDICAID - [facility] PLAN Care Teams Plane Captain Relationship Specialty Start Date End Date Jose Downing DO [address] [place] [id number] PCP - General 03/20/23
== END 2025-01-27 17:36 | disposition home or self-care (01) ==
LOC: HO.LNP 17:35
PROVIDERS: Visit Provider Nurse Practitioner Family
DX: R14.0 Abdominal distension (gaseous) (principal); R10.9 Unspecified abdominal pain
CPT/HCPCS: 87338

== ENCOUNTER 2025-02-17 15:49 | Outpatient (REF) | payer BC, SELFPAY ==
--- NOTE | 2025-02-17 15:53 | PFT_ITS ---
Spirometry [] Lung Volumes [] Diffusion Capacity [] Methacholine Challenge [] Flow Volume Loops [] MVV [] MIP/MEP(Max inspiratory pressure/Max expiratory pressure) [] 6 Minute Walk Test [] ABG [] Interpretation [] MTDD
[2025-02-17 16:37] VITALS: PULSE 73
--- OUTSIDE RECORDS SUMMARY | 2025-02-17 23:08 | XMS_ITS | Clinical Summary ---
Author Organization [address] Address [address] [place] [phone] Care Team Providers Care Researcher Name Role Phone No, Pcp (Do Not [...] topic Insurance [employer] Care Teams Researcher Relationship Specialty Start Date End Date No, Pcp (Do Not Change Name) PCP - General 11/13/23
--- OUTSIDE RECORDS SUMMARY | 2025-02-17 23:08 | XMS_ITS | Clinical Summary ---
Author Organization [facility] [address] [facility] [address] Address [address] [place] [address] Phone Care Team Providers Care Customer Care Team Coach Name Role Phone Chang Orenmeg Primary Care Provider [phone] Allergies No known active allergies Medications etonogestrel-eluti [...] Cervical Cancer Screening: P ap Smear 02/18/2026 02/18/2023 RSV Immunization Adult Patients (1 - [...] EST Screen for STD (sexually transmitted disease) PAP SMEAR Routine 02/18/2023 from Last 3 Months or Most Recently Relevant to Health Maintenance Results * Chlamydia trachomatis and Neisseria gonorrhoeae molecular study (02/20/2024 1:38 PM EST) Neisseria gonorrhoeae PCR Negative Negative LAB MOLECULAR DIAGNOSTICS METHOD 02/21/2024 9:02 AM EST [facility] Chlamydia trachomatis PCR Negative Negative LAB MOLECULAR DIAGNOSTICS METHOD 02/21/2024 9:02 AM EST [facility] Swab Cervix uteri structure / Unknown Non-blood Collection / Unknown 02/20/2024 1:38 PM EST 02/20/2024 1:38 PM EST [facility] MICROBIOLOGY - GENERAL ORD ERABLES Final Result [facility] [address] [place] [address], * Pap Smear (02/18/2023) Pap smear negative, abstracted Historical Provider HEALTH MAINTENANCE Final Result from Last 3 Months or Most Recently Relevant to Health Maintenance Insurance [place] - [place] [facility] PL[facility] Care Teams Customer Care Team Coach Relationship Specialty Start Date End Date Jose Downing DO [address] [place] [address] [place] [address] PCP - General 03/20/23
--- OUTSIDE RECORDS SUMMARY | 2025-02-17 23:08 | XMS_ITS | Clinical Summary ---
Author Organization [facility] Address [address] [place] [address] Care Team Providers Care Foil Cutter Name Role Phone Pcp, No Primary Care [...] topic Insurance [employer] Care Teams Foil Cutter Relationship Specialty Start Date End Date Pcp, No PCP - General General Medicine 07/20/23
== END 2025-02-17 15:50 | disposition home or self-care (01) ==
LOC: HO.RESP 15:49
PROVIDERS: PCP Nurse Practitioner Family; Visit Provider Nurse Practitioner Family
DX: J45.20 Mild intermittent asthma, uncomplicated (principal)
CPT/HCPCS: 94060; 94640; 94727; 94729

== ENCOUNTER → 2025-02-17 15:53 | Outpatient (BNV) | payer BC, SELFPAY | PROVIDERS: PCP Nurse Practitioner Family; Visit Provider Internal Medicine Pulmonary Disease | DX: J45.20 Mild intermittent asthma, uncomplicated (principal) | CPT/HCPCS: 94060; 94727; 94729 ==

== ENCOUNTER 2025-02-21 13:44 | Outpatient (REF) | payer BC, SELFPAY ==
--- NOTE | ~2025-02-21 | US_ITS ---
EXAMINATION: US PELVIS CLINICAL INFORMATION: Pelvic pain, bloating COMPARISON: None available. TECHNIQUE: Ultrasound of the pelvis is performed using both transabdominal and transvaginal transducers along with Doppler. Transvaginal imaging is performed due to inadequate visualization transabdominally. FINDINGS: Uterus: The uterus is anteflexed and measures 5.9 x 2.9 x 3.6 cm. The double wall endometrial thickness is 6 mm. The uterus is smooth in contour and has normal myometrial echogenicity. No visible fibroid. Adnexa: Both ovaries are visualized. There is normal color flow to the adnexa. There is no ovarian torsion. There is no pelvic ascites or fluid collection. Right ovary measures 2.4 x 1.5 x 1.8 cm. Left ovary measures 2.2 x 1.2 x 2.5 cm. US/US pelvic and transvaginal IMPRESSION: Unremarkable pelvic ultrasound Electronically signed by: Costa Mills MD 02/21/2025 02:29 PM MATT
--- OUTSIDE RECORDS SUMMARY | 2025-02-21 19:59 | XMS_ITS | Clinical Summary ---
Author Organization [address] Address [address] [place] [id number] Care Team Providers Care Life Cycle Assessment Analyst Name Role Phone No, Pcp (Do Not [...] topic Insurance [employer] Care Teams Life Cycle Assessment Analyst Relationship Specialty Start Date End Date No, Pcp (Do Not Change Name) PCP - General 11/13/23
--- OUTSIDE RECORDS SUMMARY | 2025-02-21 19:59 | XMS_ITS | Clinical Summary ---
Author Organization [facility] Address [address] [place] [address] Care Team Providers Care Investor Relations Associate Name Role Phone Pcp, No Primary Care [...] topic Insurance [employer] Care Teams Investor Relations Associate Relationship Specialty Start Date End Date Pcp, No PCP - General General Medicine 07/20/23
--- OUTSIDE RECORDS SUMMARY | 2025-02-21 19:59 | XMS_ITS | Clinical Summary ---
Author Organization [facility] [address] [facility] [address] Address [address] [place] [address] Phone Care Team Providers Care Weigh Boss Name Role Phone Chang Orenmeg Primary Care Provider [phone] Allergies No known active allergies Medications etonogestrel-eluti [...] MOLECULAR DIAGNOSTICS METHOD 02/21/2024 9:02 AM EST [facility] Chlamydia trachomatis PCR Negative Negative LAB MOLECULAR DIAGNOSTICS METHOD 02/21/2024 9:02 AM EST [facility] Swab Cervix uteri structure / Unknown Non-blood Collection / Unknown 02/20/2024 1:38 PM EST 02/20/2024 1:38 PM EST [facility] MICROBIOLOGY - GENERAL ORD ERABLES Final Result [facility] [address] [place] [address], * Pap Smear (02/18/2023) Pap smear negative, abstracted Historical Provider HEALTH MAINTENANCE Final Result from Last 3 Months or Most Recently Relevant to Health Maintenance Insurance MEDICAID - [place] [facility] PLAN Care Teams Weigh Boss Relationship Specialty Start Date End Date Jose Downing DO [address] [place] [address] [place] [id number] PCP - General 03/20/23
== END 2025-02-21 13:45 | disposition home or self-care (01) ==
LOC: HO.HMGCX 13:44
PROVIDERS: PCP Nurse Practitioner Family; Visit Provider Nurse Practitioner Family
DX: R14.0 Abdominal distension (gaseous) (principal); R10.9 Unspecified abdominal pain; R32 Unspecified urinary incontinence; R10.20 Pelvic and perineal pain unspecified side
CPT/HCPCS: 76830; 76856

== ENCOUNTER → 2025-02-21 13:48 | Outpatient (BNV) | payer BC, SELFPAY | PROVIDERS: PCP Nurse Practitioner Family; Visit Provider Radiology Diagnostic Radiology | DX: R10.20 Pelvic and perineal pain unspecified side (principal); R14.0 Abdominal distension (gaseous) | CPT/HCPCS: 76830; 76856 ==